=== PATIENT | female | born 2005 | race African-American/Black ===

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

== ENCOUNTER 2023-05-17 05:59 | Emergency (ER) | payer MEDICAID | END 2023-05-17 06:44 | disposition home or self-care (01) | LOC: MW.ED 05:59 | DX: J02.9 Acute pharyngitis, unspecified (principal) | CPT/HCPCS: 99282; 99283 ==

== ENCOUNTER 2023-08-31 08:19 | Emergency (ER) | payer SELFPAY ==
[2023-08-31 09:25] LABS: CORONAVIRUS COVID-19 NAA NEGATIVE (NEGATIVE); INFLUENZA A NAA NEGATIVE (NEGATIVE); INFLUENZA B NAA NEGATIVE (NEGATIVE); RESPIRATORY SYNCYTIAL VIR NAA NEGATIVE (NEGATIVE)
== END 2023-08-31 09:12 | disposition home or self-care (01) ==
LOC: MW.ED 08:19
DX: J02.9 Acute pharyngitis, unspecified (principal)
CPT/HCPCS: 0241U; 87651; 99283

== ENCOUNTER 2023-09-15 08:19 | Emergency (ER) | payer MEDICAID | END 2023-09-15 09:43 | disposition home or self-care (01) | LOC: MW.ED 08:19 | DX: J06.9 Acute upper respiratory infection, unspecified (principal) | CPT/HCPCS: 87651-QW; 99283 ==

== ENCOUNTER 2023-10-04 07:47 | Emergency (ER) | payer MEDICAID | END 2023-10-04 10:00 | disposition home or self-care (01) | LOC: MW.ED 07:47 | DX: J02.0 Streptococcal pharyngitis (principal) | CPT/HCPCS: 87651-QW; 99283 ==

== ENCOUNTER 2024-06-26 10:32 | Emergency (ER) | payer MEDICAID ==
[2024-06-26 10:52] LABS: APPEARANCE,URINE CLEAR; BILIRUBIN,URINE NEGATIVE (NEGATIVE); COLOR,URINE YELLOW; GLUCOSE,URINE NEGATIVE (NEGATIVE); KETONES,URINE NEGATIVE (NEGATIVE); LEUKOCYTE ESTERASE,URINE MODERATE (NEGATIVE); NITRITE,URINE NEGATIVE (NEGATIVE); OCCULT BLOOD,URINE NEGATIVE (NEGATIVE); PH,URINE 6.5 (5.0-8.0); PROTEIN,URINE NEGATIVE (NEGATIVE); UROBILINOGEN,URINE 0.2 EU/dL (<2.0)
[2024-06-26 11:43] LABS: CANDIDA DNA PROBE POSITIVE (NEGATIVE); GARDNERELLA DNA PROBE POSITIVE (NEGATIVE); TRICHOMONAS DNA PROBE NEGATIVE (NEGATIVE)
[2024-06-26 12:22] LABS: C. TRACHOMATIS BY PCR NOT DETECTED; N. GONORRHOEAE BY PCR NOT DETECTED
[2024-06-26 13:53] LABS: BACTERIA,URINE FEW (NEGATIVE); EPITHELIAL CELLS,URINE FEW (NONE-FEW); RBC,URINE 0-2 (0-2/HPF)
== END 2024-06-26 11:41 | disposition home or self-care (01) ==
LOC: MW.ED 10:32
DX: N30.00 Acute cystitis without hematuria (principal); Z75.8 Other problems related to medical facilities and other health care
CPT/HCPCS: 81001; 81025; 87086; 87480; 87491; 87510; 87591; 87660; 99283

== ENCOUNTER 2024-08-05 14:02 | Emergency (ER) | payer MEDICAID ==
[2024-08-05 15:38] LABS: APPEARANCE,URINE CLEAR; BILIRUBIN,URINE NEGATIVE (NEGATIVE); COLOR,URINE YELLOW; GLUCOSE,URINE NEGATIVE (NEGATIVE); KETONES,URINE NEGATIVE (NEGATIVE); LEUKOCYTE ESTERASE,URINE MODERATE (NEGATIVE); NITRITE,URINE NEGATIVE (NEGATIVE); OCCULT BLOOD,URINE NEGATIVE (NEGATIVE); PROTEIN,URINE NEGATIVE (NEGATIVE); UROBILINOGEN,URINE 0.2 EU/dL (<2.0)
[2024-08-05 15:46] LABS: BACTERIA,URINE 1+ (NEGATIVE); EPITHELIAL CELLS,URINE MANY (NONE-FEW); RBC,URINE 0-2 (0-2/HPF)
[2024-08-05 16:23] LABS: CANDIDA DNA PROBE NEGATIVE (NEGATIVE); GARDNERELLA DNA PROBE POSITIVE (NEGATIVE); TRICHOMONAS DNA PROBE NEGATIVE (NEGATIVE)
[2024-08-05 17:08] LABS: C. TRACHOMATIS BY PCR NOT DETECTED; N. GONORRHOEAE BY PCR NOT DETECTED
[2024-08-05] MEDS: Nitrofurantoin Monohydrate/Macrocrystalline 100 MG Cap PO STA (17:37)
[2024-08-05] MEDS: Clindamycin HCl 150 MG Cap PO STA (17:38)
== END 2024-08-05 17:39 | disposition home or self-care (01) ==
LOC: MW.ED 14:02
DX: N76.0 Acute vaginitis (principal); N30.00 Acute cystitis without hematuria; Z86.16 Personal history of COVID-19; Z75.8 Other problems related to medical facilities and other health care; Z79.899 Other long term (current) drug therapy
CPT/HCPCS: 81001; 81025; 87086; 87480; 87491; 87510; 87591; 87660; 99283; A9270; 99284

== ENCOUNTER 2024-09-15 13:20 | Emergency (ER) | payer MEDICAID ==
[2024-09-15] MEDS: Sodium Chloride 0.9% 1,000 ML IV ONE (13:40)
[2024-09-15] MEDS: Loperamide 2 MG Cap PO STA (13:41)
[2024-09-15 13:46] LABS: BASOPHILS ABSOLUTE AUTO 0.04 K/uL (0.00-0.20); BASOPHILS PERCENT AUTO 0.6 % (0.0-1.0); EOSINOPHILS ABSOLUTE AUTO 0.17 K/uL (0.00-0.45); EOSINOPHILS PERCENT AUTO 2.5 % (0.0-6.0); HEMATOCRIT 38.8 % (37.0-47.0); HEMOGLOBIN 14.1 g/dL (12.0-16.0); IMMATURE GRAN ABSOLUTE AUTO 0.01 K/uL (0.00-0.05); IMMATURE GRAN PERCENT AUTO 0.1 % (0.0-0.4); LYMPHOCYTES ABSOLUTE AUTO 2.87 K/uL (1.00-4.80); LYMPHOCYTES PERCENT AUTO 41.7 % (24.0-44.0); MEAN CORPUSCULAR HEMOGLOBIN 29.7 pg (28.0-32.0); MEAN CORPUSCULAR HGB CONC 36.3 g/dL (32.0-36.0); MEAN CORPUSCULAR VOLUME 81.9 fL (83.0-99.0); MEAN PLATELET VOLUME 9.5 fL (9.4-12.3); MONOCYTES ABSOLUTE AUTO 0.54 K/uL (0.00-0.80); MONOCYTES PERCENT AUTO 7.8 % (0.0-8.0); NEUTROPHILS ABSOLUTE AUTO 3.25 K/uL (1.80-7.70); NEUTROPHILS PERCENT AUTO 47.3 % (41.0-71.0); PLATELET COUNT,PLT 336 K/uL (150-400); RED BLOOD CELL COUNT 4.74 M/uL (4.10-5.30); WHITE BLOOD CELL COUNT,WBC 6.88 K/uL (3.9-11.3)
[2024-09-15 14:07] LABS: A/G RATIO 0.7 (0.9-1.6); ALBUMIN 3.5 g/dL (3.4-5.0); BILIRUBIN TOTAL 0.5 mg/dL (0.2-1.0); CALCIUM 9.2 mg/dL (8.5-10.1); CARBON DIOXIDE,CO2 30.3 mmol/L (21.0-32.0); EST CRCL DRUG DOSING (CG) 89.77 mL/min; POTASSIUM,K 4.1 mmol/L (3.5-5.1); PROTEIN TOTAL,TP 8.6 g/dL (6.4-8.2)
== END 2024-09-15 15:32 | disposition home or self-care (01) ==
LOC: MW.ED 13:20
DX: R19.7 Diarrhea, unspecified (principal); Z86.16 Personal history of COVID-19; Z79.899 Other long term (current) drug therapy; Z75.8 Other problems related to medical facilities and other health care
CPT/HCPCS: 36415; 80053; 83690; 83735; 85025; 96360; 99284; A9270; J7030

== ENCOUNTER 2025-02-21 10:12 | Emergency (ER) | payer SELFPAY ==
[2025-02-21] MEDS: Ondansetron 4 MG Tab.DIS PO ONE (11:44)
[2025-02-21] MEDS: Ketorolac 30 MG/ML SDV IM ONE (11:45)
[2025-02-21] MEDS: Ketorolac 10 MG Tab PO ONE (11:56)
[2025-02-21] MEDS: diphenhydrAMINE 25 MG Cap PO ONE (13:20)
== END 2025-02-21 13:56 | disposition home or self-care (01) ==
LOC: MW.ED 10:12
DX: H65.91 Unspecified nonsuppurative otitis media, right ear (principal); R51.9 Headache, unspecified; Z79.899 Other long term (current) drug therapy; Z75.3 Unavailability and inaccessibility of health-care facilities
CPT/HCPCS: 99283; A9270